=== PATIENT | female | born 1960 | race Caucasian/White ===

== ENCOUNTER 2020-11-12 14:19 | Emergency (ER) | payer OTHER, MEDICAID ==
[~2020-11-12] VITALS: Ht 172.7 cm; Wt 110.2 kg
[2020-11-12] MEDS ORDERED: PROPRANOLOL 1010 MG PO (14:32)
[2020-11-12] MEDS ORDERED: NEURONTIN 300M300 M2 PO (14:32)
[2020-11-12] MEDS ORDERED: EFFEXOR XR75 MG PO (14:32)
[2020-11-12] MEDS ORDERED: MELOXICAM15 MG PO (14:33)
[2020-11-12] MEDS ORDERED: EYE DROPS ADVAN15 ML OPHTHALMIC (14:33)
[2020-11-12 15:18] VITALS: BP 150/91
== END 2020-11-12 15:19 | disposition home or self-care (01) ==
LOC: M.ERS 14:19
DX: S05.01XA Injury of conjunctiva and corneal abrasion without foreign body, right eye, initial encounter (principal); H10.33 Unspecified acute conjunctivitis, bilateral; M19.90 Unspecified osteoarthritis, unspecified site; X58.XXXA Exposure to other specified factors, initial encounter; Y93.89 Activity, other specified; Y92.89 Other specified places as the place of occurrence of the external cause; Y99.8 Other external cause status

== ENCOUNTER 2021-05-23 15:41 | Emergency (ER) | payer OTHER, MEDICAID ==
[~2021-05-23] VITALS: Ht 172.7 cm; Wt 110.2 kg
[~2021-05-23 15:41] MED LIST: EFFEXOR XR75 MG PO; EYE DROPS ADVAN15 ML OPHTHALMIC; MELOXICAM15 MG PO; NEURONTIN 300M300 M2 PO; PROPRANOLOL 1010 MG PO
[2021-05-23 16:52] VITALS: BP 111/76
== END 2021-05-23 16:53 | disposition home or self-care (01) ==
LOC: M.ERS 15:41
DX: F41.9 Anxiety disorder, unspecified (principal); H53.8 Other visual disturbances; M19.90 Unspecified osteoarthritis, unspecified site; F32.9 Major depressive disorder, single episode, unspecified; F17.210 Nicotine dependence, cigarettes, uncomplicated; Z90.710 Acquired absence of both cervix and uterus; Z79.899 Other long term (current) drug therapy